=== PATIENT | female | born 1970 | race African-American/Black ===

== ENCOUNTER 2017-03-21 12:40 | Observation (INO) | payer OTHER ==
[~2017-03-21] VITALS: Ht 175.3 cm; Wt 125.7 kg
[~2017-03-21 12:40] MED LIST: ERGOCALCIF50000 UNIT PO; EXCEDRIN EXTRA1 EACH PO; FLEXERIL10 MG PO; HYDROCHLOROTHIA50 MG PO; KEFLEX250 MG PO; LEVOXYL150 MCG PO; LYSTEDA650 MG PO; MAGNESIUM400 M1 PO; METOPROLOL TART25 MG PO; MOTRIN800 MG PO; ONE DAILY WOME1 EACH PO; SLOW RELEASE I160 MG PO; SYNTHROID175 MCG PO; TESSALON PERLE100 MG PO; VENTOLIN HFA18 GM IH; VITAMIN D34000 UNIT PO; ZITHROMAX Z-PA250 MG PO
[2017-03-21 13:42] LABS: HEMATOCRIT 33.3 % (36.0-46.0); MCH 24.5 PG (29.0-34.0); MCHC 31.2 G/DL (30.0-36.0); MCV 78.4 FL (83-99); PLATELET COUNT 266 K/uL (156-360); RBC DIS.WIDTH-CV 15.7 % (11.8-14.6); RBC DIS.WIDTH-SD 44.2 % (39-53); RED BLOOD COUNT 4.25 M/uL (3.80-5.20); WHITE BLOOD COUNT 4.3 K/uL (4.1-10.2)
[2017-03-21 13:51] LABS: CHLORIDE 107 mEq/L (99-109); POTASSIUM 3.4 mEq/L (3.7-5.4); SODIUM 138 mEq/L (136-147)
[2017-03-21 13:53] LABS: GLUCOSE 144 mg/dL (70-99)
[2017-03-21 13:54] LABS: ANION GAP 8 MEQ/L (2-14)
[2017-03-21 13:57] LABS: GFR ESTIMATE (CALCULATED) > 59 mL/min/
[2017-03-21 13:58] LABS: UREA NITROGEN (BUN) 8 mg/dL (9-23)
[2017-03-21 14:03] LABS: TROP-I INTERPRETATION NEGATIVE; TROPONIN-I < 0.01 ng/mL (0.0-0.30)
[2017-03-21] MEDS ORDERED: LEVOTHYROXINE175 MCG PO (16:23)
[2017-03-21] MEDS ORDERED: SLOW RELEASE I250 M1 PO (16:24)
[2017-03-21] MEDS ORDERED: METHOCARBAMOL750 MG PO (16:25)
[2017-03-21] MEDS ORDERED: METOPROLOL SUCC25 MG PO (16:25)
[2017-03-21] MEDS ORDERED: REFRESH OPTIVE10 ML BOTH EYES (16:26)
[2017-03-21 17:34] LABS: TROP-I INTERPRETATION NEGATIVE; TROPONIN-I < 0.01 ng/mL (0.0-0.30)
[2017-03-21 20:00] VITALS: BP 139/80
[2017-03-21 20:36] LABS: D-DIMER ELISA 0.52 mg/L FEU (< 0.57)
[2017-03-21 21:56] LABS: POINT-OF-CARE METER ID UU14162513
[2017-03-21 23:50] LABS: TROP-I INTERPRETATION NEGATIVE; TROPONIN-I < 0.01 ng/mL (0.0-0.30)
[2017-03-22 00:53] VITALS: BP 125/60
[2017-03-22 06:10] LABS: HEMATOCRIT 31.8 % (36.0-46.0); MCH 24.9 PG (29.0-34.0); MCHC 31.8 G/DL (30.0-36.0); MCV 78.3 FL (83-99); MEAN PLAT.VOLUME 11.9 uM^3 (9.5-12.4); PLATELET COUNT 239 K/uL (156-360); RBC DIS.WIDTH-CV 15.8 % (11.8-14.6); RBC DIS.WIDTH-SD 44.6 % (39-53); RED BLOOD COUNT 4.06 M/uL (3.80-5.20); WHITE BLOOD COUNT 4.3 K/uL (4.1-10.2)
[2017-03-22 06:35] LABS: ALKALINE PHOSPHATASE 48 IU/L (3-129); ANION GAP 8 MEQ/L (2-14); CHLORIDE 108 MEQ/L (99-109); GFR ESTIMATE (CALCULATED) > 59 mL/min/; SAMPLE HEMOLYSIS CHECK 0; SAMPLE ICTERIC CHECK 0; SAMPLE LIPEMIA CHECK 0; SODIUM 139 MEQ/L (136-147); TOTAL BILIRUBIN 0.4 MG/DL (0.0-1.0); UREA NITROGEN (BUN) 7 mg/dL (9-23)
[2017-03-22 06:38] LABS: GLUCOSE 102 mg/dL (70-99); POTASSIUM 4.1 MEQ/L (3.7-5.4)
[2017-03-22 06:43] LABS: TROP-I INTERPRETATION NEGATIVE; TROPONIN-I < 0.01 ng/mL (0.0-0.30)
[2017-03-22 06:50] LABS: Estimated Average Glucose 123 mg/dL (70-123); HEMOGLOBIN A1c (GLYCOHEMOGLOB) 5.9 % HGB (Below 5.7)
[2017-03-22 07:40] LABS: IRON 47 MCG/DL (35-150)
[2017-03-22 08:15] LABS: FERRITIN 19 NG/ML (10-291)
[2017-03-22 08:38] VITALS: BP 144/88
[2017-03-22 08:46] LABS: POINT-OF-CARE METER ID UU14162513
[2017-03-22 11:46] VITALS: BP 137/79
== END 2017-03-22 16:28 | disposition home or self-care (01) ==
LOC: EME 12:40 → EDOF 18:55 → 5WEST 18:55 → EDOF 18:55 → 5WEST 20:24
PROVIDERS: Hospitalist; Internal Medicine; Nurse Practitioner Family
DX: R07.89 Other chest pain (principal); I11.9 Hypertensive heart disease without heart failure; E87.6 Hypokalemia; D50.9 Iron deficiency anemia, unspecified; E11.9 Type 2 diabetes mellitus without complications; E03.9 Hypothyroidism, unspecified; J45.909 Unspecified asthma, uncomplicated; I27.2 Other secondary pulmonary hypertension; I25.10 Atherosclerotic heart disease of native coronary artery without angina pectoris; E66.01 Morbid (severe) obesity due to excess calories; G43.909 Migraine, unspecified, not intractable, without status migrainosus; Z85.850 Personal history of malignant neoplasm of thyroid
CPT/HCPCS: 71020; 80048; 80053; 82728; 82948; 83036; 83540; 83880; 84466; 84484; 85027; 85379; 93005; 99202; 99281; 99285; G0378

== ENCOUNTER 2017-12-04 11:20 | Day surgery (SDC) | payer OTHER ==
[~2017-12-04] VITALS: Ht 175.3 cm; Wt 127.4 kg
[~2017-12-04 11:20] MED LIST changes: +LEVOTHYROXINE175 MCG PO; +MEGACE20 MG PO; +METHOCARBAMOL750 MG PO; +METOPROLOL SUCC25 MG PO; +MICROZIDE12.5 M1 PO; +QVAR 80 MCG IN7.3 GM IH; +REFRESH OPTIVE10 ML BOTH EYES; +SLOW RELEASE I250 M1 PO
[2017-12-04 12:29] VITALS: BP 152/71
[2017-12-04 15:52] VITALS: BP 145/72
[2017-12-04 16:58] VITALS: BP 165/81
== END 2017-12-04 17:10 | disposition home or self-care (01) ==
LOC: SDC 11:20
DX: N92.0 Excessive and frequent menstruation with regular cycle (principal); D50.0 Iron deficiency anemia secondary to blood loss (chronic); Z30.8 Encounter for other contraceptive management; E03.9 Hypothyroidism, unspecified; J45.909 Unspecified asthma, uncomplicated; R73.03 Prediabetes
CPT/HCPCS: 88305; J0330; J1100; J1170; J1885; J2250; J2405; J3010

== ENCOUNTER 2017-12-05 15:33 | Emergency (ER) | payer OTHER ==
[~2017-12-05] VITALS: Ht 175.3 cm; Wt 127.6 kg
[2017-12-05 18:40] VITALS: BP 149/78
== END 2017-12-05 18:41 | disposition home or self-care (01) ==
LOC: EME 15:33
DX: S10.0XXA Contusion of throat, initial encounter (principal); X58.XXXA Exposure to other specified factors, initial encounter; R07.9 Chest pain, unspecified; R05 Cough; R10.9 Unspecified abdominal pain; Z98.890 Other specified postprocedural states; Z97.5 Presence of (intrauterine) contraceptive device; E03.9 Hypothyroidism, unspecified; I10 Essential (primary) hypertension; J45.909 Unspecified asthma, uncomplicated; Z85.850 Personal history of malignant neoplasm of thyroid
CPT/HCPCS: 71046; 93005; 94640; 99281; 99284

== ENCOUNTER 2018-02-03 05:29 | Day surgery (SDC) | payer OTHER ==
[~2018-02-03] VITALS: Ht 175.3 cm; Wt 128.8 kg
[~2018-02-03 05:29] MED LIST changes: -LEVOTHYROXINE175 MCG PO; -SLOW RELEASE I250 M1 PO; +SYNTHROID150 MCG PO
[2018-02-03 05:59] VITALS: BP 137/74
[2018-02-03 16:25] VITALS: BP 172/82
[2018-02-03 19:18] VITALS: BP 145/69
[2018-02-03 23:51] VITALS: BP 136/71
[2018-02-04 03:59] VITALS: BP 133/75
[2018-02-04 06:50] LABS: HEMATOCRIT 31.1 % (36.0-46.0); HEMOGLOBIN 9.4 G/DL (11.9-15.5); MCH 21.9 PG (29.0-34.0); MCHC 30.2 G/DL (30.0-36.0); MCV 72.5 FL (83-99); PLATELET COUNT 242 K/uL (156-360); RBC DIS.WIDTH-CV 22.1 % (11.8-14.6); RBC DIS.WIDTH-SD 56.5 % (39-53); RED BLOOD COUNT 4.29 M/uL (3.80-5.20)
[2018-02-04 06:58] LABS: CHLORIDE 106 MEQ/L (99-109); CREATININE 0.6 MG/DL (0.6-1.3); GFR ESTIMATE (CALCULATED) > 59 mL/min/; GLUCOSE 119 mg/dL (70-99); POTASSIUM 3.9 MEQ/L (3.7-5.4); SODIUM 138 MEQ/L (136-147); UREA NITROGEN (BUN) 6 mg/dL (9-23)
[2018-02-04 07:47] VITALS: BP 161/75
[2018-02-04] MEDS ORDERED: HYDROCODON-ACE1 EAC7 PO (08:07)
[2018-02-04] MEDS ORDERED: MOTRIN800 MG PO (08:09)
[2018-02-04 11:19] VITALS: BP 137/83
== END 2018-02-04 13:04 | disposition home or self-care (01) ==
LOC: SDC → 2SOUTH 12:03 → 2EASTP 12:03 → ENRESERV 12:15 → SDC 12:46 → ENRESERV 12:56 → 2EASTP 14:02
PROVIDERS: Obstetrics & Gynecology
DX: N92.1 Excessive and frequent menstruation with irregular cycle (principal); N93.8 Other specified abnormal uterine and vaginal bleeding; D25.9 Leiomyoma of uterus, unspecified; N80.0 Endometriosis of uterus; N83.201 Unspecified ovarian cyst, right side; N73.6 Female pelvic peritoneal adhesions (postinfective)
CPT/HCPCS: 80048; 82948; 85027; 88307; 94640; 94640 76; G0378; J0131; J0330; J0690; J1100; J1170; J1885; J2250; J2405; J2710; J2765; J3010; J7120; J7643; Q0175

== ENCOUNTER 2018-02-08 03:49 | Emergency (ER) | payer OTHER ==
[~2018-02-08] VITALS: Ht 175.3 cm; Wt 128.2 kg
[~2018-02-08 03:49] MED LIST changes: +HYDROCODON-ACE1 EAC7 PO
[2018-02-08 05:37] VITALS: BP 149/94
== END 2018-02-08 05:49 | disposition home or self-care (01) ==
LOC: EME 03:49
DX: R04.0 Epistaxis (principal); D64.9 Anemia, unspecified; I10 Essential (primary) hypertension; Z90.710 Acquired absence of both cervix and uterus; Z88.2 Allergy status to sulfonamides
CPT/HCPCS: 85027; 99281; 99284